=== PATIENT | female | born 1980 | race Caucasian/White ===

== ENCOUNTER 2023-05-28 12:42 | Emergency (ER) | payer OTHER ==
[~2023-05-28] VITALS: Ht 167.6 cm; Wt 79.4 kg
[~2023-05-28 12:42] MED LIST: ENBREL50 MG/ML SQ; FOLBIC RF TABL1 EACH PO; FOLIC ACID1 MG PO; SYNTHROID150 MCG PO
[2023-05-28] MEDS ORDERED: TOPROL XL25 M1 PO (13:30)
[2023-05-28] MEDS ORDERED: PLAVIX75 MG PO (13:30)
== END 2023-05-28 19:10 | disposition home or self-care (01) ==
LOC: ER 12:42
PROVIDERS: Emergency Medicine
DX: R42 Dizziness and giddiness (principal)

== ENCOUNTER 2024-03-01 08:30 | Inpatient (IN) | payer OTHER ==
[~2024-03-01] VITALS: Ht 167.6 cm; Wt 83.0 kg
[~2024-03-01 08:30] MED LIST changes: +PLAVIX75 MG PO; +TOPROL XL25 M1 PO
[2024-03-01] MEDS ORDERED: CYTOMEL5 MCG PO (09:08)
[2024-03-01] MEDS ORDERED: TREXALL5 MG PO (09:09)
[2024-03-01] MEDS ORDERED: PLAQUENIL PO (09:09)
[2024-03-01] MEDS ORDERED: FIORICET (09:11)
[2024-03-01] MEDS ORDERED: HORIZANT300 MG PO (09:11)
[2024-03-01 09:28] LABS: HEMOGLOBIN 11.9 g/dL (12.0-15.00); MEAN CELL VOLUME 90.4 fL (80.00-100.00); MEAN CORPUSCULAR HEMOGLOBIN 30.8 pg (27.00-32.0); MEAN CORPUSCULAR HGB CONC 34.1 g/dl (32.0-36.0); PLATELET COUNT 302 K/uL (150-450); RED BLOOD COUNT 3.87 M/uL (4.00-6.00); RED CELL DISTRIBUTION WIDTH 15.5 % (11.5-14.5)
[2024-03-01 09:30] LABS: URINE APPEARANCE Clear; URINE BILIRRUBIN Negative (NEGATIVE); URINE BLOOD Moderate; URINE COLOR Yellow; URINE GLUCOSE Negative (NEGATIVE); URINE LEUKOCYTE Negative; URINE NITRATE Negative; URINE PROTEIN Negative (NEGATIVE); URINE UROBILINOGEN 0.2 E.U./dl
[2024-03-01 09:33] LABS: URINE EPITHELIAL CELLS 29.1 uL (0.0-38.8); URINE RBC 13.9 uL (0.0-20.8); URINE WBC 2.7 uL (0.0-23.2)
[2024-03-01 09:49] LABS: INR 1.01; PARTIAL THROMBOPLASTIN TIME 27.8 SECONDS (22.0-34.0); PROTHROMBIN TIME 10.6 SECONDS (9.0-11.5)
[2024-03-01 11:01] LABS: BILIRUBIN TOTAL 0.35 mg/dL (0.3-1.2); CALCIUM 9.4 mg/dL (8.5-10.1); CREATININE SERUM 0.85 mg/dL (0.55-1.02); GFR 72.66; GLOBULINA 4.3 G/DL (2.4-3.5); POTASSIUM 4.24 mEq/L (3.5-5.1); TOTAL PROTEIN 8.3 gm/dL (6.4-8.2)
[2024-03-07] MEDS ORDERED: POVIDONE-IODINE 118 ML BOTT TOP SCH (07:45)
[2024-03-07] MEDS ORDERED: CEFAZOLIN SODIUM 1,000 MG VIAL IV ONE (07:45)
[2024-03-07] MEDS ORDERED: METHOTREXATE2.5 MG (08:26)
[2024-03-07] MEDS ORDERED: MONTELUKAST SOD10 MG (08:26)
[2024-03-07] MEDS ORDERED: ROSUVASTATIN CA10 MG (08:26)
[2024-03-07] MEDS ORDERED: OMEPRAZOLE40 MG (08:26)
[2024-03-07] MEDS ORDERED: GABAPENTIN100 M2 (08:26)
[2024-03-07] MEDS ORDERED: FLONASE16 GM (08:26)
[2024-03-07] MEDS ORDERED: HYDROXYCHLOROQ200 MG (08:26)
[2024-03-07] MEDS ORDERED: XIIDRA1 EACH (08:28)
[2024-03-07] MEDS ORDERED: BUTALB-ACETAMI1 EAC2 (08:32)
[2024-03-07] MEDS ORDERED: SUGAMMADEX SODIUM 200 MG/2 ML VIAL IV ONE (09:15)
[2024-03-07] MEDS ORDERED: RINGERS SOLUTION,LACTATED 1,000 ML IV SCH (10:30)
[2024-03-07] MEDS ORDERED: PROMETHAZINE HCL 25 MG/ML AMPUL IM SCH (12:00)
[2024-03-07] MEDS ORDERED: MEPERIDINE HCL/PF 50 MG,MEPERIDINE HCL/PF 25 MG IM SCH (12:00)
[2024-03-07] MEDS ORDERED: CEFAZOLIN SODIUM 1,000 MG VIAL IV SCH (21:00)
[2024-03-07] MEDS ORDERED: ONDANSETRON HCL 2 MG/ML VIAL IV SCH (21:00)
[2024-03-08] MEDS ORDERED: OxyCODONE HCL/APAP UD (PERCOCET) PO SCH (08:00)
[2024-03-08] MEDS ORDERED: SIMETHICONE 125 MG CAPSULE PO SCH (09:00)
[2024-03-08] MEDS ORDERED: DOCUSATE CALCIUM 240 MG CAPSULE PO SCH (09:00)
== END 2024-03-09 09:50 | disposition home or self-care (01) | DRG 743 ==
LOC: O/R 03-07 05:15 → SURH 03-07 07:00 → OB/GYN 03-07 10:22
PROVIDERS: ADMIT Obstetrics & Gynecology; ATTEND Obstetrics & Gynecology
PROC: 0DNW0ZZ Release Peritoneum, Open Approach (ICD-10-PCS; 2024-03-07)
PROC: 0UT90ZZ Resection of Uterus, Open Approach (ICD-10-PCS; principal; 2024-03-07 07:00)
DX: D25.1 Intramural leiomyoma of uterus (principal); N80.101 Endometriosis of right ovary, unspecified depth; Z20.822 Contact with and (suspected) exposure to COVID-19; N73.6 Female pelvic peritoneal adhesions (postinfective)